=== PATIENT | female | born 1980 | race Caucasian/White ===

== ENCOUNTER → 2024-07-27 | Outpatient (CLI) | payer OTHER | LOC: LAB 08:25 → LAB SHORT 08:25 | DX: R82.998 Other abnormal findings in urine (principal) | CPT/HCPCS: 87086 ==

== ENCOUNTER → 2024-09-05 | Outpatient (CLI) | payer OTHER ==
[2024-09-05 19:16] LABS: Bacterial Vaginosis PCR Negative (NEGATIVE); Candida glabrata-krusei, PCR NOT DETECTED (NOT DETECT)
[2024-09-06 00:04] LABS: Candida Group, PCR DETECTED (NOT DETECT)
== END ==
LOC: LAB 15:59 → LAB SHORT 15:59
DX: N89.8 Other specified noninflammatory disorders of vagina (principal)
CPT/HCPCS: 81515; 87624; G0123